=== PATIENT | female | born 1990 | race Caucasian/White ===

== ENCOUNTER 2016-08-31 13:50 | Emergency (ER) | payer SELFPAY ==
[~2016-08-31] VITALS: Ht 162.6 cm; Wt 49.9 kg
--- NOTE | 2016-08-31 14:25 | NUR ---
DR MCDERMOTT AT THE BEDSIDE FOR EVAL AND EXAM.
--- NOTE | 2016-08-31 14:28 | NUR ---
PT SIGNED CONSENT FOR WAIVER, PLACED IN THE CHART.
--- NOTE | 2016-08-31 15:29 | NUR ---
Patient discharged to home in stable conditon. Written and verbal after care instructions given. Patient verbalizes understanding of instructions. PT LEFT ER W/ STEADY GAIT ACCOMPAINED BY FAMILY.
[2016-08-31 15:30] VITALS: BP 122/70
== END 2016-08-31 15:31 | disposition home or self-care (01) ==
LOC: ER 13:50
DX: S00.83XA Contusion of other part of head, initial encounter (principal); R42 Dizziness and giddiness; R11.0 Nausea; V43.52XA Car driver injured in collision with other type car in traffic accident, initial encounter; Y93.89 Activity, other specified; Y99.8 Other external cause status; Y92.89 Other specified places as the place of occurrence of the external cause
CPT/HCPCS: 70450; 70486; A4663